=== PATIENT | male | born 1940 | race Caucasian/White ===

== ENCOUNTER 2019-02-17 01:39 | Emergency (ER) | payer MEDICARE, SELFPAY ==
[2019-02-17 01:41] VITALS: BP 159/95; PULSE 90; RESP 16; TEMP 36.6; O2SAT 96; BMI 25.0
--- NOTE | 2019-02-17 02:01 | RAD_ITS ---
STUDY: X-RAY - CERVICAL SPINE REASON FOR EXAM: Male, 78 years old. Neck pain TECHNIQUE: 4 view(s) of the cervical spine were obtained. COMPARISON: None FINDINGS: There is degenerative changes of the anterior atlantoaxial articulation. Normal odontoid process. Normal cervical lordosis. There is diffuse degenerative changes with facet arthrosis. There is degenerative disk changes most prominent at C5-C6. No acute fracture visualized. The soft tissue structures are unremarkable. RAD/Cerv Spine 2 or 3 Views IMPRESSION: Degenerative changes without evidence for acute fracture. Electronically Signed: Fab Galvez, at 2:41 EDT Tel , Service support ,
[2019-02-17] MEDS: oxyCODONE 5 MG Tablet PO (02:08)
--- NOTE | 2019-02-17 02:29 | ED.DCSUM_ITS ---
History of Present Illness Chief Complaint: Other, Pain/Inj Informant: Patient Onset: Days - 3 Timing: Continuous Current Severity: Moderate Maximum Severity: Moderate Narrative: Patient presents with neck pain for about 3 days he took aspirin last night and it completely went away, he has more pain today. He denies fever chills cough or congestion. He is worried because he got a recent influenza vaccination and wants to know if these are linked. He denies any weakness. He walked into the emergency department with no problem. He has no sensory deficits. He has no loss of strength in his arms. The pain in his neck is diffuse, it is spinal and paraspinal region. No known injury. No headache. Pain is moderate Past Medical History - Allergies and Home Meds Allergies/Adverse Reactions: Allergies Sulfa (Sulfonamide Antibiotics) Allergy (Verified 02/17/19 02:08) Unknown Primary Care Physician: Ag Rogers DO [Primary Care Provider] - Past Medical History: - - Reviewed in [employer]. Smoking Status: Never smoker Review of Systems General: Denies: Fever Cardiovascular: Denies: Chest pain Respiratory: Denies: Cough Gastrointestinal: Denies: Abdominal pain Genitourinary: Denies: Dysuria Musculoskeletal: Reports: Neck pain. Denies: Arthralgias, Back pain Skin: Denies: Abscess Neurological: Denies: Headache, Weakness, Parasthesia, Numbness Hematologic: Denies: Easy bruising Allergy: Denies: Uticaria Physical Exam Vital Signs/Narrative: Vital Signs Temp Pulse Resp BP Pulse Ox 02/17/19 01:41 97.8 F 90 16 159/95 H 96 General: Well nourished, Well developed, - - He appears in some distress Eyes: - - Exophthalmos ENT: Moist mucous membranes Neck: - - Slight goiter. Posterior neck is what his pain is, he has pain over C2-C3-C4 and C5. He also has quite a bit of paraspinal pain. He is able to move his neck up and down and side to side with minimal discomfort. He has some paraspinal tension. Cardiovascular: Regular rate, Regular rhythm Respiratory: No distress Abdomen: Soft, Nontender Back: Nontender, Normal Inspection Extremities: Nontender, - - Normal strength of the upper and lower extremities. Normal sensation bilaterally Skin: Normal color Neurological: Alert, Normal Strength, Normal Sensation, - - 1+ reflexes bilaterally both patella and Achilles. Normal plantar flexion and dorsiflexion of both feet and both great toes bilaterally. There is no sensory deficits. He is able to ambulate quite well. Diagnostic/Tx/Re-eval - Medical Decision Making Patient likely has DJD based on x-ray, he has no neurological signs or symptoms, the influenza vaccine is likely incidental, patient has no signs or symptoms of GBS at this time. I had a long conversation with him and the about following up, he may eventually need an MRI, he has any sensory deficits or has any weakness in his legs or arms he needs to return right away. He has a long- standing thyroid issue with physical exam findings that are likely chronic. No further investigation is needed. I will discharge the patient in stable condition. Impression: Neck pain Discharge stable condition ED Disposition - Plan for ED Patient: Diagnosis: Neck pain Instructions: Understanding Neck Problems, Neck Problems: Relieving Your Symptoms Prescriptions: Oxycodone HCl/Acetaminophen [Percocet 5/325] 1 tab PO Q6H PRN PRN 3 Days #12 tab PRN Reason: Pain Prescription Printed Referrals: Ag Rogers DO [Primary Care Provider] - 3-5 Days
--- NOTE | 2019-02-17 02:51 | ED.DEP ---
ED Disposition - Plan for ED Patient: Disposition: Home or Assisted Living Diagnosis: Neck pain Instructions: Understanding Neck Problems, Neck Problems: Relieving Your Symptoms Prescriptions: Oxycodone HCl/Acetaminophen [Percocet 5/325] 1 tab PO Q6H PRN PRN 3 Days #12 tab PRN Reason: Pain Prescription Printed Referrals: Ag Rogers DO [Primary Care Provider] - 3-5 Days
[2019-02-17] MEDS: Morphine 4 MG/ML Syringe SC (03:05)
[2019-02-17] MEDS: Ondansetron ODT 4 MG Tablet PO (03:05)
== END 2019-02-17 03:52 | disposition home or self-care (01) ==
PROVIDERS: Emergency Provider Emergency Medicine; Family Provider Preventive Medicine Occupational Medicine; PCP Preventive Medicine Occupational Medicine
DX: M54.2 Cervicalgia (principal)
CPT/HCPCS: 72040; 96372; 99283

== ENCOUNTER 2023-01-03 08:11 | Emergency (ER) | payer MEDICARE, SELFPAY ==
[2023-01-03 08:12] VITALS: BP 175/73; PULSE 83; RESP 16; TEMP 36.4; O2SAT 97; BMI 21.9
[2023-01-03 08:19] VITALS: BP 157/78
--- NOTE | 2023-01-03 08:29 | ED.VIS.LOWEX ---
HPI History of Present Illness Chief Complaint: Lower Extremity Injury Informant: patient Narrative Narrative: Patient presents with medial right knee pain. Patient states that he was walking out of a store 2 days ago. He got a sharp pain in the medial side of his right knee. It was not bothering him prior to this. No fevers chills. No recent infections. He has had problems with his left knee where he had a meniscus injury a few years ago. He has been having problems with his right knee for about a year but has not seen anybody. It is worse with weightbearing. When he is not bearing weight it really does not hurt. [facility] Medical History (Updated 01/03/23 @ 08:[address] Suresh Garcia MD) Hypertension Hypothyroid (Unknown) Home Medications amlodipine 10 mg tablet 10 mg PO DAILY 02/17/19 [History Last Taken Unknown] hydrochlorothiazide 12.5 mg tablet 12.5 mg PO DAILY 02/17/19 [History Last Taken Unknown] latanoprost 0.005 % eye drops 1 drp EACHEYE QHS 02/17/19 [History Last Taken Unknown] levothyroxine 100 mcg tablet 100 mcg PO DAILY 02/17/19 [History Last Taken Unknown] Allergy/AdvReac Type Severity Reaction Status Date / Time Sulfa (Sulfonamide Allergy Unknown Verified 01/03/23 08:14 Antibiotics) Social History Smoking Status: Never smoker [facility] ED Constitutional Constitutional ED: Denies chills, fever(s) or sweats Cardiovascular Cardiovascular: Denies racing heartbeat Respiratory/Chest Respiratory/Chest: Denies cough or dyspnea Gastrointestinal Gastrointestinal: Denies nausea or vomiting Musculoskeletal Musculoskeletal: Reports arthralgias; Denies back pain, myalgias or neck pain Integumentary Denies abscess, Abrasions or rash Neurologic Neurologic: Denies paresthesias or weakness Hematologic/Lymphatic Hematologic/Lymphatic: Reports other Details: No anticoagulation. ; Denies easy bleeding or easy bruising Allergic/Immunologic Allergic/Immunologic ED: Denies urticaria EXAM Physical Exam Narrative Exam Narrative: Patient is awake alert no acute distress sitting comfortably on bed. HEENT shows no sign of trauma. Neck shows no JVD. Cardiorespiratory status shows a normal heart rate and easy unlabored breathing with normal saturations at 97% on room air showing no hypoxia. Extremities show no swelling or deformity. He has prominent medial compartments of both knees consistent with some arthritic changes. But there is no erythema warmth effusion or pain with range of motion. Knee is stable to exam. Exam is a little bit difficult because it is hard for the patient to relax enough. But no obvious medial or lateral collateral ligament or anterior cruciate ligament laxity. Overall the knee exam looks like some chronic arthritis but no acute process. There is no distal calf swelling tenderness or distended veins. No tenderness along the deep venous system no cord. No asymmetry. Const Vital Signs: 01/03/23 08:12 01/03/23 08:19 Temperature 97.5 F L Temperature Source Temporal Pulse Rate 83 Respiratory Rate 16 Blood Pressure 175/73 H 157/78 H Blood Pressure Mean 107 104 Pulse Ox 97 Oxygen Delivery Method Room Air Room Air MDM MDM MDM Narrative Medical decision making narrative: We talked that there is no indication of infection. I am not able to get an MRI of this knee which had been done as an outpatient with the other knee. We will do an x-ray to make sure we do not see any notable bony abnormality or joint mouse. I think follow-up with orthopedics will be appropriate. We are pending x-rays at this time. I did review online line prescribing report through the [facility] and there are no controlled substances. My independent interpretation the patient's 4 view x-ray of the right knee show no sign of acute fracture. No air-fluid levels. He does have some mild arthritic changes. This is consistent with final reading by radiology. We discussed options with the patient. I explained that we normally do not do intra-articular steroid injections here. We can try him on an injectable steroid, a short course of prednisone or single dose of Decadron to see if this will help. He does not have diabetes. We agreed to start with a single dose of Decadron rest and ice to see if this will help him. Radiography Diagnostic Testing: Clinical Impression(s) from Imaging Studies Knee X-Ray 01/03/23 08:35 IMPRESSION: Degenerative arthrosis. Electronically Signed: Brian Yepez MD at 8:50 EDT , Discharge Plan Triage Chief Complaint: Lower Extremity Injury ED Provider: Suresh Garcia Dx/Rx/DC Orders Clinical Impression: Injury of knee, right Instructions: Reducing Knee Pain and Swelling Prescriptions: No Action latanoprost 2.5 ML drops 1 drp EACHEYE QHS Patient Comments: INSTILL 1 DROP INTO BOTH EYES EVERY DAY AT NIGHT levothyroxine 100 MCG tablet 100 mcg PO DAILY Patient Comments: TAKE 1 TABLET BY MOUTH EVERY DAY amlodipine 10 MG tablet 10 mg PO DAILY Patient Comments: TAKE 1 TABLET BY MOUTH EVERY DAY hydrochlorothiazide 6.25 MG tablet 12.5 mg PO DAILY Patient Comments: TAKE 1 TABLET BY MOUTH EVERY DAY Primary Care Provider: Ag Rogers Referrals: Alek Self DO [Med Staff - Active Staff] - As soon as possible Ag Rogers DO [Primary Care Provider] - Disposition Disposition: Home, Self Care
--- NOTE | 2023-01-03 08:35 | RAD_ITS ---
STUDY: X-RAY - RIGHT KNEE REASON FOR EXAM: Male, 82 years old. Right knee pain. No known injury. TECHNIQUE: view(s) of the knee. COMPARISON: None. FINDINGS: Normal visualized distal femur. Normal visualized proximal tibia and fibula. Normal proximal tibiofibular articulation. Normal medial femorotibial compartment. Normal lateral femorotibial compartment. There is moderate degenerative arthrosis of the patellofemoral articulation. There are atherosclerotic calcifications. RAD/Knee 4 or More Views IMPRESSION: Degenerative arthrosis. Electronically Signed: Brian Yepez MD at 8:50 EDT ,
[2023-01-03] MEDS: dexAMETHasone 4 MG Tablet 10 MG PO (10:44)
== END 2023-01-03 10:47 | disposition home or self-care (01) ==
PROVIDERS: Emergency Provider Emergency Medicine; PCP Preventive Medicine Occupational Medicine; Visit Provider Emergency Medicine
DX: S80.911A Unspecified superficial injury of right knee, initial encounter (principal); I10 Essential (primary) hypertension; E03.9 Hypothyroidism, unspecified; Z79.899 Other long term (current) drug therapy
CPT/HCPCS: 73564; 99282